=== PATIENT | male | born 1960 | race Caucasian/White ===

== ENCOUNTER 2021-11-24 07:46 | Day surgery (SDC) | payer OTHER ==
[~2021-11-24] VITALS: Ht 193 cm; Wt 144.7 kg
[~2021-11-24 07:46] MED LIST: CIALIS2.5 MG PO; CYMBALTA30 MG PO; DEPO-TESTO200 MG/1 M IM; EPIPEN 2-P0.3 MG/0.3 IM; LISINOPRIL-HCT1 EACH PO; LOVASTATIN40 MG PO; METAMUCIL660 GM PO; METFORMIN HCL500 MG PO; NORCO 10-325 T1 EACH PO; OMEPRAZOLE20 MG PO; ZOCOR10 MG
--- NOTE | 2021-11-24 09:39 | NUR ---
11/24/21 0939 Pinky Aquino 0934- PT ARRIVES TO PACU AWAKE AND TALKING WITH STAFF. PT REPORTS NO PAIN OR NAUSEA. ENCOURAGED TO PASS FLATUS. RESP EVEN AND UNLABORED. OXYGEN SAT HIGH 90'S ON 3L VIA NC. 0937- PT PASSING FLATUS. 0939- OXYGEN TITRATED OFF.
--- NOTE | 2021-11-25 07:35 | OR ---
[facility] [address] [place], [place] [address] Signed DATE OF OPERATION: 11/24/2021 SURGEON: Susan Curran MD PREOPERATIVE DIAGNOSES: 1. Father with anal cancer in his 60s. 2. Internal and external hemorrhoids with intermittent rectal bleeding. 3. Diverticulosis. 4. Hyperplastic polyp 2009. POSTOPERATIVE DIAGNOSES: 1. 12 mm polyp at 38 cm (snare). 2. Minimal to moderate sigmoid diverticulosis. 3. Minimal to moderate internal and external hemorrhoids. 4. Poor prep. PROCEDURE: Colonoscopy with snare polypectomy and hot biopsy. ESTIMATED BLOOD LOSS: None. INDICATIONS: Juliocesar is a 61-year-old gentleman who has been coming for colonoscopy every five years. His father is known to have anal cancer in his 60s. His father underwent an abdominoperineal resection down in [place]. Juliocesar had a colonoscopy in [address] Quinn in [place], [place]. He always has intermittent rectal bleeding associated with his hemorrhoids. He had diverticulosis at that time. He did well with Versed and fentanyl. I did his colonoscopy in 2005 and again he had internal and external hemorrhoids with diverticulosis. Despite the fact he uses daily hydrocodone, he always does well with the Versed and fentanyl. We repeated his endoscopy in 2009. Again, he had internal and external hemorrhoids along with the diverticulosis and hyperplastic polyp. We repeated the colonoscopy in 2014 and again he did well with versed and fentanyl. He also had minimal diverticulosis along with internal and external hemorrhoids. He continues with intermittent rectal bleeding. He underwent a radical prostatectomy at [facility] in 2019 for his prostate cancer. He did not receive radiation therapy. His urologist, Dr. Matson is now retired. 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 He returns for his followup colonoscopy. In the office, I gave him a pamphlet on colonoscopy. Of course, he recalls the test quite well. There is risk including, but not limited to gas bloating, Electronically Signed By: SUSAN CURRAN MD 11/25/21 0735 PATIENT NAME: JULIOCESAR GARCIA OPERATIVE REPORT DATE OF : 60 REPORT #: [id number] PHYSICIAN: SUSAN CURRAN MD PCP: MAURICIO WILLSON DO REPORT IS CONFIDENTIAL AND NOT TO BE RELEASED WITHOUT AUTHORIZATION [facility] [address] [place] [address] Signed crampy abdominal pain, bleeding, perforation requiring surgery, and missed diagnosis. As he said before, he always does well Versed and fentanyl despite his daily need for hydrocodone. He had expressed understanding and wished to proceed. PROCEDURE NOTE: Juliocesar was taken into our endoscopy suite and placed in the left lateral decubitus position. He told me for whatever reason this time he did not respond well to the bowel prep. Indeed he had moderately poor bowel prep on this occasion. In the future, I think he will be better served with a double bowel prep. He received 150 mcg of fentanyl and 7 mg of Versed to cover the case. On digital rectal exam, he does have minimal to moderate external hemorrhoids. He has good sphincter tone. He is a very large man with very long anal canal. Of course, I could not feel any prostate or obvious nodularity. However, it is very difficult to get above his anal canal. The adult colonoscope was introduced and advanced under direct visualization without difficulty up to the cecum itself. We could see the appendiceal orifice and the ileocecal valve. Unfortunately, he had several areas of heavy particulate liquid stool matter that could not be suctioned through the scope. The scope was then slowly withdrawn. We found his pedunculated 12 mm polyp back at 38 cm. We removed that with the help of a snare and grabbed it with our hot biopsy forceps. We then used our hot biopsy forceps to cauterize and biopsy the base as well. He does have diverticula in his sigmoid colon. They were not particularly large. There were few to moderate in size and scattered around. The rectum was unremarkable. Upon retroflexion of scope, he has minimal to moderate internal hemorrhoids. After this, the gas was suctioned out and colonoscope removed. Juliocesar tolerated the procedure quite well. RECOMMENDATIONS: I will see Juliocesar back in my office in 7 to 14 days to review his results. Due to the polyp that we found and his poor bowel prep, he should consider having a repeat colonoscopy on a shortened interval. He should use a double bowel prep in the future. Susan Curran MD [facility]/CECILIOL /[id number] cc: Mauricio Willson DO Electronically Signed By: SUSAN CURRAN MD 11/25/21 0735 PATIENT NAME: JULIOCESAR GARCIA OPERATIVE REPORT DATE OF : 60 REPORT #: [id number] PHYSICIAN: SUSAN CURRAN MD PCP: MAURICIO WILLSON DO REPORT IS CONFIDENTIAL AND NOT TO BE RELEASED WITHOUT AUTHORIZATION [facility] [address] [place], [place] [address] Signed Susan Curran MD Copies: MAURICIO WILLSON ANDREW L MD ~ Electronically Signed By: SUSAN CURRAN MD 11/25/21 0735 PATIENT NAME: JULIOCESAR GARCIA OPERATIVE REPORT DATE OF : 60 REPORT #: [id number] PHYSICIAN: SUSAN CURRAN MD PCP: MAURICIO WILLSON DO REPORT IS CONFIDENTIAL AND NOT TO BE RELEASED WITHOUT AUTHORIZATION
--- NOTE | 2021-11-25 12:37 | PATH ---
[facility] [address] [facility] [place], [place] [address] Signed SPECIMEN(S): A POLYP AT 38 CM SPECIMEN(S): B BASE OF POLYP AT 38 CM SPECIMEN SOURCE: A. POLYP AT 38 CM B. BASE OF POLYP AT 38 CM CLINICAL HISTORY: Family history colon CA. Follow-up FINAL PATHOLOGIC DIAGNOSIS: A. Colon, polyp at 38 cm, polypectomy: - Consistent with inflammatory type polyp. - Negative for dysplasia or malignancy. B. Colon, base of polyp at 38 cm, biopsy: - Fragments of cauterized colonic mucosa with no histopathologic abnormality. NAL:cml:C2NR MICROSCOPIC EXAMINATION: Histologic sections of all submitted blocks are examined by light microscopy. These findings, together with the gross examination, support the pathologic diagnosis. GROSS DESCRIPTION: Two specimens are received in two containers, labeled "BG." A. The specimen, labeled "BG, colon polyp at 38 cm," is received in formalin and consists of one coleman soft tissue fragment that measures 0.7 cm in greatest dimension. The specimen is trisected and entirely submitted in cassette (A1). B. The specimen, labeled "BG, base of polyp at 38 cm," is received in formalin and consists of two coleman soft tissue fragment(s) that measure 0.1-0.2 cm in greatest dimension. The specimen is entirely submitted in cassette (B1). JS (under the direct supervision of a pathologist) The Gross Description was prepared using a voice recognition system. The report was reviewed for accuracy; however, sound-alike word errors, addition and/or deletions may occur. If there is any question about this report, please contact Client Services. PERFORMING LABORATORY: The technical component was performed by [facility], Christine Cruzpamela [place], PATIENT NAME: KERRY GARCIA PATHOLOGY DATE OF : 60 REPORT #: [id number] PHYSICIAN: [facility] PCP: RANDA WILLSON DO REPORT IS CONFIDENTIAL AND NOT TO BE RELEASED WITHOUT AUTHORIZATION [facility] [address] [place], [place] [address] [place] [address] (Optical Effects Camera Operator: Silvia Garces MD; CLIA# [id number]). [facility], [address] [address] (CLIA# [id number]). Diagnostician: Yoselyn Flores MD Pathologist Electronically Signed 11/25/2021 Copies: ~ PATIENT NAME: KERRY GARCIA PATHOLOGY DATE OF : 60 REPORT #: [id number] PHYSICIAN: [facility] PCP: RANDA WILLSON DO REPORT IS CONFIDENTIAL AND NOT TO BE RELEASED WITHOUT AUTHORIZATION
== END 2021-11-24 10:20 | disposition home or self-care (01) ==
LOC: DS 07:46 → OPS 07:46 → DS 09:00 → OPS 10:20
PROVIDERS: ATTEND Colon & Rectal Surgery
PROC: 0DBE8ZX Excision of Large Intestine, Via Natural or Artificial Opening Endoscopic, Diagnostic (ICD-10-PCS; 2021-11-24)
PROC: 0DBE8ZX Excision of Large Intestine, Via Natural or Artificial Opening Endoscopic, Diagnostic (ICD-10-PCS; principal; 2021-11-24 09:00)
DX: K63.5 Polyp of colon (principal); K57.30 Diverticulosis of large intestine without perforation or abscess without bleeding; K64.0 First degree hemorrhoids; K64.4 Residual hemorrhoidal skin tags; E11.9 Type 2 diabetes mellitus without complications; E78.5 Hyperlipidemia, unspecified; I10 Essential (primary) hypertension; G47.33 Obstructive sleep apnea (adult) (pediatric); M17.10 Unilateral primary osteoarthritis, unspecified knee; M19.011 Primary osteoarthritis, right shoulder; E66.9 Obesity, unspecified; Z68.41 Body mass index [BMI] 40.0-44.9, adult; Z80.0 Family history of malignant neoplasm of digestive organs; Z79.84 Long term (current) use of oral hypoglycemic drugs; Z91.030 Bee allergy status; Z88.5 Allergy status to narcotic agent; Z88.0 Allergy status to penicillin; Z88.8 Allergy status to other drugs, medicaments and biological substances; Z85.46 Personal history of malignant neoplasm of prostate
CPT/HCPCS: J2250; J3010; J7121

== ENCOUNTER 2021-12-14 09:20 | Emergency (ER) | payer OTHER ==
[~2021-12-14] VITALS: Ht 193 cm; Wt 144.7 kg
--- OUTSIDE RECORDS SUMMARY | 2021-12-14 09:22 | XMS ---
PreManage Notification: KERRY GARCIA Security Prom Burn Off Operator Events No recent Security Events currently on file CRITERIA MET - [facility] CARE PROVIDERS There are no care providers on record at this time. Wu has no Care Guidelines for this patient. Kita VISIT COUNT (12 MO.) 1 SOPHIA Smith TOTAL 1 NOTE: Visits indicate total known visits. ED/C VISIT TRACKING (12 MO.) 12/14/2021 09:21 SOPHIA Shah [place] TYPE: Emergency COMPLAINT: - CONFUSION, HEADACHE, SWEATY INPATIENT VISIT TRACKING (12 MO.) No inpatient visits to display in this time frame [email or web address]
--- NOTE | 2021-12-14 17:27 | EKG ---
[facility] [address] [facility] [place], [place] [address] Signed Sinus bradycardia Nonspecific T wave abnormality Abnormal ECG No previous ECGs available Confirmed by SHELDON COLIN MD ([id number]) on 12/14/2021 5:27:09 PM Electronically Signed By: SHELDON COLIN MD 12/14/21 1727 PATIENT NAME: KERRY GARCIA Electrocardiogram DATE OF : 60 PHYSICIAN: SHELDON COLIN MD REPORT #: [id number] REPORT IS CONFIDENTIAL AND NOT TO BE RELEASED WITHOUT AUTHORIZATION
== END 2021-12-14 15:33 | disposition home or self-care (01) ==
LOC: ED 09:20
DX: R51.9 Headache, unspecified (principal); R41.0 Disorientation, unspecified; I10 Essential (primary) hypertension; J45.909 Unspecified asthma, uncomplicated; E11.9 Type 2 diabetes mellitus without complications; K21.9 Gastro-esophageal reflux disease without esophagitis; Z88.0 Allergy status to penicillin; Z88.5 Allergy status to narcotic agent; Z91.030 Bee allergy status; Z88.8 Allergy status to other drugs, medicaments and biological substances; Z79.899 Other long term (current) drug therapy; Z79.84 Long term (current) use of oral hypoglycemic drugs; Z20.822 Contact with and (suspected) exposure to COVID-19
CPT/HCPCS: 36415; 70450; 70496; 70498; 71045; 80053; 81001; 85025; 85610; 85730; 93005; 93010; 99284-25; C9803; Q9967; U0003

== ENCOUNTER 2025-06-02 10:52 | Day surgery (SDC) | payer MEDICARE, OTHER ==
[~2025-06-02] VITALS: Ht 188 cm; Wt 147.0 kg
[~2025-06-02 10:52] MED LIST changes: +CEFAZOLIN SODIUM 3 GM/30 ML SYR IV SCH; +DULOXETINE HCL30 MG PO; +IBLOOD GLUCOSE TEST STRIP 1 EA TEST VI PRN; +LACTATED RINGER'S 1,000 ML IV SCH; +LIDOCAINE HCL 1% 5 ML SDV INJ ONE
[2025-06-02 11:22] VITALS: BP 158/75
[2025-06-02] MEDS ORDERED: LIDOCAINE HCL 2% 5 ML SDV ONE (11:42)
--- NOTE | 2025-06-02 12:52 | NUR ---
06/02/25 Iglesia2 Meri Seo LE 1247: PT ARRIVES TO PACU WITH ORAL AIRWAY IN PLACE. REPORT RECEIVED FROM [employer]. HELENA 1248: ORAL AIRWAY REMOVED.
[2025-06-02 13:30] VITALS: BP 140/69
--- NOTE | 2025-06-04 13:22 | PATH ---
[facility] [address] [place], [place] [address] Signed SPECIMEN(S): A DUODENAL BIOPSY SPECIMEN(S): B ANTRUM BIOPSY SPECIMEN(S): C DISTAL ESOPHAGEAL BIOPSY SPECIMEN(S): D MID ESOPHAGEAL BIOPSY SPECIMEN(S): E RECTUM BIOPSY SPECIMEN SOURCE: A. DUODENAL BIOPSY B. ANTRUM BIOPSY C. DISTAL ESOPHAGEAL BIOPSY D. MID ESOPHAGEAL BIOPSY E. RECTUM BIOPSY CLINICAL HISTORY: Chronic GERD, rectal bleeding, family history of colon cancer, gastritis, mild esophagitis, small hiatal hernia, diverticulosis FINAL PATHOLOGIC DIAGNOSIS: A. Duodenum, biopsies - Mild chronic erosive duodenitis with Neil's gland hyperplasia, negative for significant villous blunting. B. Antrum, biopsies - Unremarkable antral mucosa, negative for significant inflammation or evidence of intestinal metaplasia. C. Distal esophagus, biopsies - Chronic reflux esophagogastritis, negative for Dozier's metaplasia. D. Mid esophagus, biopsies - Benign squamous mucosa with vascular congestion, negative for increased eosinophils. E. Rectum, biopsies - Mildly hyperplastic colonic mucosa, negative for active colitis, granulomas or dysplasia. AMB MICROSCOPIC EXAMINATION: Histologic sections of all submitted blocks are examined by light microscopy. These findings, together with the gross examination, support the pathologic diagnosis. GROSS DESCRIPTION: A. The specimen, labeled and designated "Dakota duodenal biopsy," is PATIENT NAME: KERRY GARCIA PATHOLOGY DATE OF : 60 REPORT #: [id number] PHYSICIAN: LATIA PATHOLOGY PCP: HOANG WELLINGTON NP REPORT IS CONFIDENTIAL AND NOT TO BE RELEASED WITHOUT AUTHORIZATION [facility] [address] [place], [place] [address] Signed received in formalin and consists of two coleman soft tissue fragments, ranging from 0.1-0.4 cm. Entirely submitted in (A1). B. The specimen, labeled and designated "Gundlach, antrum biopsy," is received in formalin and consists of one coleman soft tissue fragment, 0.4 cm. Entirely submitted in (B1). C. The specimen, labeled and designated "Gundlach, distal esophageal biopsy," is received in formalin and consists of three coleman soft tissue fragments, ranging from 0.2-0.6 cm. Entirely submitted in (C1). D. The specimen, labeled and designated "Gundlach, mid esophageal biopsy," is received in formalin and consists of three coleman soft tissue fragments, ranging from 0.1-0.6 cm. Entirely submitted in (D1). E. The specimen, labeled and designated "Gundlach, rectum biopsy," is received in formalin and consists of two coleman soft tissue fragments, ranging from 0.3-0.6 cm. Entirely submitted in (E1). VB (under the direct supervision of a pathologist) The Gross Description was prepared using a voice recognition system. The report was reviewed for accuracy; however, sound-alike word errors, addition and/or deletions may occur. If there is any question about this report, please contact Client Services. ADDITIONAL NOTES: Immunohistochemical and/or in situ hybridization studies if performed in this case included appropriate positive controls that reacted as expected. This test was developed and its performance characteristics determined by [facility]. It has not been cleared or approved by the U.S. Food and Drug Administration. The FDA has determined that such clearance or approval is not necessary. This test is used for clinical purposes. It should not be regarded as investigational or for research. [facility] is certified under the Clinical Laboratory Improvement Amendments of 1988 (CLIA) as qualified to perform high complexity clinical laboratory testing. PERFORMING LABORATORY: Technical component was performed by [facility], [address] [place] [address] (CLIA# [id number]). Professional interpretation was performed by [facility] [address] [id number] Diagnostician: Silvia Garces MD PATIENT NAME: KERRY GARCIA PATHOLOGY DATE OF : 60 REPORT #: [id number] PHYSICIAN: LATIA PATHOLOGY PCP: HOANG WELLINGTON NP REPORT IS CONFIDENTIAL AND NOT TO BE RELEASED WITHOUT AUTHORIZATION [facility] [address] [place] [address] Signed Pathologist Electronically Signed 06/04/2025 Copies: ~ PATIENT NAME: KERRY GARCIA PATHOLOGY DATE OF : 60 REPORT #: [id number] PHYSICIAN: LATIA HOGAN PCP: HOANG WELLINGTON NP REPORT IS CONFIDENTIAL AND NOT TO BE RELEASED WITHOUT AUTHORIZATION
--- NOTE | 2025-06-06 14:10 | OR ---
[facility] [address] [place], [place] [address] Signed DATE OF OPERATION: 06/02/2025 SURGEON: Janene Armenta MD PREOPERATIVE DIAGNOSES: 1. Persistent gastroesophageal reflux symptoms. 2. History of rectal bleeding, recent findings of possible hemorrhoidal disease. POSTOPERATIVE DIAGNOSES: 1. Small and superficial erosion of duodenum second portion. 2. Hiatal hernia with mild associated esophagitis. 3. Antral gastritis. 4. Diverticulosis sigmoid, possible internal hemorrhoidal change. PROCEDURES: 1. Esophagogastroduodenoscopy with biopsy. 2. Total colonoscopy to cecum with biopsy of rectum. ANESTHESIA: Intravenous sedation propofol infusion; Brennen Mora CRNA. INDICATION: This 65-year-old morbidly obese white man is a patient of BASIA Christiansen in [place], [place]. The patient himself lives in [place]. He is here for upper endoscopy on the basis of his reflux and peptic type symptoms as well as colonoscopy on the basis of rectal bleeding that he had in March of this year. He was noted to have probable external hemorrhoidal changes. He underwent colonoscopy two years ago by Dr. Ham Curran, which was notable for internal hemorrhoids at that time. He understands the risk of bleeding, infection, and perforation related to upper endoscopy and colonoscopy and wished to proceed. FINDINGS: Upper endoscopy showed no evidence of Dozier's esophagus, but did show a poor flap valve consistent with small hiatal hernia and mild chronic inflammation. Stomach was notable for mild antral gastritis and the duodenum for a small and superficial erosion of the second portion of the duodenum. Colonoscopy showed a good prep. Complete colonoscopy was undertaken to the cecum. There were diverticula of the sigmoid, but no evidence of polyps or colitis proper. Some internal hemorrhoidal changes were noted. Electronically Signed By: JANENE ARMENTA MD 06/06/25 1410 PATIENT NAME: KERRY GARCIA OPERATIVE REPORT DATE OF : 60 REPORT #: [id number] PHYSICIAN: JANENE ARMENTA MD PCP: HOANG WELLINGTON NP REPORT IS CONFIDENTIAL AND NOT TO BE RELEASED WITHOUT AUTHORIZATION [facility] [address] [place], [place] [address] Signed DESCRIPTION OF PROCEDURE: The patient was brought to the endoscopy suite given topical hypopharyngeal anesthesia with lidocaine spray. He was given intravenous sedation with propofol infusional technique by the head of transport logistics with full cardiopulmonary monitoring. A bite block had been placed. The Olympus video upper endoscope was passed in the hypopharynx. The vocal cords were normal. Scope was advanced into the esophagus, which was normal except for the distal portion, which had mild chronic inflammation. No sign of acute inflammation or stricture. The scope was then passed to the stomach. Rugal folds appeared normal. Antrum had mild antral gastritis. Pylorus was normal. Scope was passed through it into the duodenum. There was a small and superficial erosion of the second portion of the duodenum. This area was biopsied. The scope was withdrawn and biopsies taken of the antrum for both JS and pathologic testing. Retroflexed view showed a poor flap valve. The scope was withdrawn and biopsies taken of distal esophageal mucosa though there was no evidence of Dozier's proper. Midesophageal biopsies were obtained also. Further withdrawal showed no other abnormality. Plans were then made for colonoscopy. Digital rectal examination was undertaken showing no palpable mass. No sign of ulceration. An Olympus video colonoscope was passed in the rectum and manipulated throughout the colon ultimately intubating the cecum itself. The ileocecal valve was normal. The scope was withdrawn from that point and close examination showed no sign of abnormality into the sigmoid where diverticular changes were noted. Further withdrawal to the rectum showed no sign of abnormality. However, biopsy was obtained to assess for occult colitis. Retroflex views undertaken showing some mild internal hemorrhoidal change, but nothing profound. The scope was straightened, withdrawn, removed and perianal exam showed no sign of other finding. At conclusion, he was taken to recovery room in good condition having suffered no complication. ASSESSMENT: 1. Gastroesophageal reflux with low-grade esophagitis and no sign of Dozier's epithelium. 2. Small antral erosion (biopsied). 3. Mild antral gastritis; CLOtest negative. 4. Diverticula of the sigmoid colon. Remaining colon normal. PLAN: The patient has other issues including carpal tunnel problem of his right hand. We will see him back in the office to review his pathology reports and consideration for right carpal tunnel release in the future as well. Electronically Signed By: JANENE ARMENTA MD 06/06/25 1410 PATIENT NAME: KERRY GARCIA OPERATIVE REPORT DATE OF : 60 REPORT #: [id number] PHYSICIAN: JANENE ARMENTA MD PCP: HOANG WELLINGTON NP REPORT IS CONFIDENTIAL AND NOT TO BE RELEASED WITHOUT AUTHORIZATION [address] [address] Signed Janene Armenta MD JM/MODL /[id number] cc: BASIA Christiansen [place] Copies: ~ Electronically Signed By: JANENE ARMENTA MD 06/06/25 1410 PATIENT NAME: KERRY GARCIA OPERATIVE REPORT DATE OF : 60 REPORT #: [id number] PHYSICIAN: JANENE ARMENTA MD PCP: HOANG WELLINTGON NP REPORT IS CONFIDENTIAL AND NOT TO BE RELEASED WITHOUT AUTHORIZATION
== END 2025-06-02 13:37 | disposition home or self-care (01) ==
LOC: DS 10:52 → OPS 10:52 → DS 11:30 → OPS 11:30
PROVIDERS: ATTEND Surgery
PROC: 0DB58ZX Excision of Esophagus, Via Natural or Artificial Opening Endoscopic, Diagnostic (ICD-10-PCS; 2025-06-02)
PROC: 0DBP8ZX Excision of Rectum, Via Natural or Artificial Opening Endoscopic, Diagnostic (ICD-10-PCS; 2025-06-02)
PROC: 0DB98ZX Excision of Duodenum, Via Natural or Artificial Opening Endoscopic, Diagnostic (ICD-10-PCS; principal; 2025-06-02 12:50)
PROC: 0DB68ZX Excision of Stomach, Via Natural or Artificial Opening Endoscopic, Diagnostic (ICD-10-PCS; 2025-06-02 12:50)
DX: K21.00 Gastro-esophageal reflux disease with esophagitis, without bleeding (principal); K29.70 Gastritis, unspecified, without bleeding; K26.7 Chronic duodenal ulcer without hemorrhage or perforation; K44.9 Diaphragmatic hernia without obstruction or gangrene; K62.5 Hemorrhage of anus and rectum; K57.30 Diverticulosis of large intestine without perforation or abscess without bleeding; K26.9 Duodenal ulcer, unspecified as acute or chronic, without hemorrhage or perforation; G47.33 Obstructive sleep apnea (adult) (pediatric); E66.01 Morbid (severe) obesity due to excess calories; Z68.41 Body mass index [BMI] 40.0-44.9, adult; Z88.5 Allergy status to narcotic agent; Z87.891 Personal history of nicotine dependence; Z80.0 Family history of malignant neoplasm of digestive organs
CPT/HCPCS: 00813; 88305; J0690; J2003; J2704; J7121